=== PATIENT | female | born 1975 | race Hispanic/Latino ===

== ENCOUNTER 2019-02-05 04:24 | Observation (INO) | payer BC ==
[~2019-02-05] VITALS: Ht 160 cm; Wt 108.0 kg
--- OUTSIDE RECORDS SUMMARY | 2019-02-05 04:27 | XMS REPORT | Clinical Summary ---
Author Author [facility]BDON [facility] Address Unknown Phone Unavailable Care Team Providers Care Client Leader Name Role Phone Franklin Guzman MD PCP Allergies No Known Allergies Medications End Date Status Medication Sig Dispensed Refills Start Date Active levothyroxine (SYNTHROID, Take 88 mcg 0 LEVOTHROID) 88 MCG tablet by mouth Every morning on an empty stomach. Active metFORMIN (GLUCOPHAGE) Take 500 mg 0 500 MG tablet by mouth daily. Active atenolol (TENORMIN) 25 MG Take 25 mg by 0 tablet mouth daily. 07/01/2018 ciprofloxacin HCl (CIPRO) Take 1 tablet 14 tablet 0 500 MG tablet (500 mg 8 total) by mouth 2 (two) times daily for 7 days. 07/01/2018 metroNIDAZOLE (FLAGYL) Take 1 tablet 21 tablet 0 500 MG tablet (500 mg 8 total) by mouth 3 (three) times daily for 7 days. 07/01/2018 ondansetron (ZOFRAN) 4 MG Take 1 tablet 20 tablet 0 tablet (4 mg total) 8 by mouth every 4 (four) hours as needed for up to 7 days. Active Problems Not on file Encounters Care Team Description Date Type Specialty Eran Epps MD Colitis (Primary Dx); Generalized abdominal pain; Leukocytosis, unspecified type; Non-intractable vomiting with nausea, unspecified vomiting type 06/24/2018 Emergency Emergency Medicine 06/24/2018 Orders Only General Internal Medicine after 02/04/2018 Social History Date Tobacco Use Types Packs/Day Years Used Never Smoker Smokeless Tobacco: Never Used Sex Assigned at Date Recorded Not on file Industry Job Start Date Occupation Not on file Not on file Not on file Travel End Travel History Travel Start No recent travel history available. Last Filed Vital Signs Time Taken Vital Sign Reading 06/24/2018 12:40 PM CDT Blood Pressure 143/71 06/24/2018 12:40 PM CDT Pulse 53 06/24/2018 12:40 PM CDT Temperature 35.9 C (96.6 F) 06/24/2018 12:40 PM CDT Respiratory Rate 18 06/24/2018 12:40 PM CDT Oxygen Saturation 97% - Inhaled Oxygen - Concentration 06/24/2018 12:40 PM CDT Weight 140.6 kg (310 lb) 06/24/2018 12:40 PM CDT Height 160 cm (5' 3") 06/24/2018 12:40 PM CDT Body Mass Index 54.91 Plan of Treatment Not on file Procedures Comments Procedure Name Priority Date/Time Associated Diagnosis REPORT OF PROCEDURE - 06/25/2018 ENDOSCOPY SCAN 3:23 PM CDT ED ECG INTERPRETATION Routine 06/24/2018 9:[address] ABDOMEN/PELVIS WITH IV STAT 06/24/2018 CONTRAST 4:42 PM CDT CBC W/PLT COUNT & AUTO STAT 06/24/2018 DIFFERENTIAL 2:50 PM CDT LIPASE STAT 06/24/2018 2:50 PM CDT COMPREHENSIVE METABOLIC STAT 06/24/2018 PANEL 2:50 PM CDT CBC W/PLT COUNT & AUTO STAT 06/24/2018 DIFFERENTIAL 2:50 PM CDT after 02/04/2018 Results * EKG-SCANNED (06/25/2018 3:23 PM CDT) Narrative Performed At * ED ECG Interpretation (06/24/2018 9:52 PM CDT) Narrative Performed At Eran Epps MD 06/24/20189:52 PM ECG/EKG Interpretation Date/Time: 06/24/2018 4:20 PM Performed by: ERAN EPPS Authorized by: ERAN EPPS The ECG was interpreted by ED physician. This ECG was not compared with previous ECG(s).The ECG is interpreted as sinus rhythm. Rate is normal rate. Heart rate is 69 BPM. Clinical Impression: non-specific ECGComments: Nsr, nml axis, nml qrs, nml intervals * CT abdomen/pelvis with IV contrast (06/24/2018 4:42 PM CDT) Narrative Performed At FINAL REPORT [facility] CT of the abdomen and pelvis, with contrast Clinical History:diffuse abd pain diffuse abd pain Technique: CT of the abdomen and pelvis is performed with intravenous contrast administration.This exam was performed according to our departmental dose optimization program which includes automated exposure control, adjustment of the mA and/or kV according to patient's size and/or use of iterative reconstructive technique. Comparison Film:None Discussion: Visualized lower thorax is unremarkable. Liver is fatty. Status post cholecystectomy. No biliary ductal dilatation. The spleen, pancreas, and left adrenal gland are unremarkable. A 2.6 cm right adrenal nodule is not fully characterized on this exam. Kidneys contain several subcentimeter hypodensities bilaterally, too small to definitively characterize, but statistically they are likely to represent cysts. There is no hydronephrosis. Note excreted contrast in the renal collecting system may obscure the presence of small stones. No evidence of bowel obstruction. There is colonic diverticulosis, without focal inflammatory change to suggest acute diverticulitis. Mild colonic wall thickening versus underdistention, but there is no pericolonic inflammatory change. Appendix is normal. In the pelvis, bladder is unremarkable. Uterus is absent. No adnexal mass. There is no free air, or ascites. Osseous structures demonstrate mild degenerative changes. Impression: Question mild colonic wall thickening, versus underdistention, correlate clinically for colitis. Colonic diverticulosis, without evidence of acute diverticulitis. Fatty liver. Status post cholecystectomy, and hysterectomy. Bilateral small renal hypodensities, probably representing cysts, though not definitively characterized. Signed: Marysol Ordoñez MD Report Verified Date/Time:06/24/2018 17:12:19 Reading Location: [facility] Radiology Reading Room Procedure Note Interface, External Ris In - 06/24/2018 5:14 PM CDT FINAL REPORT CT of the abdomen and pelvis, with contrast Clinical History: diffuse abd pain diffuse abd pain Technique: CT of the abdomen and pelvis is performed with intravenous contrast administration. This exam was performed according to our departmental dose optimization program which includes automated exposure control, adjustment of the mA and/or kV according to patient's size and/or use of iterative reconstructive technique. Comparison Film: None Discussion: Visualized lower thorax is unremarkable. Liver is fatty. Status post cholecystectomy. No biliary ductal dilatation. The spleen, pancreas, and left adrenal gland are unremarkable. A 2.6 cm right adrenal nodule is not fully characterized on this exam. Kidneys contain several subcentimeter hypodensities bilaterally, too small to definitively characterize, but statistically they are likely to represent cysts. There is no hydronephrosis. Note excreted contrast in the renal collecting system may obscure the presence of small stones. No evidence of bowel obstruction. There is colonic diverticulosis, without focal inflammatory change to suggest acute diverticulitis. Mild colonic wall thickening versus underdistention, but there is no pericolonic inflammatory change. Appendix is normal. In the pelvis, bladder is unremarkable. Uterus is absent. No adnexal mass. There is no free air, or ascites. Osseous structures demonstrate mild degenerative changes. Impression: Question mild colonic wall thickening, versus underdistention, correlate clinically for colitis. Colonic diverticulosis, without evidence of acute diverticulitis. Fatty liver. Status post cholecystectomy, and hysterectomy. Bilateral small renal hypodensities, probably representing cysts, though not definitively characterized. Signed: Marysol Ordoñez MD Report Verified Date/Time: 06/24/2018 17:12:19 Reading Location: [facility] Radiology Reading Room Performing Organization Address City/State/Zipcode Phone Number [facility]IS * CBC with platelet count + automated diff (06/24/2018 2:50 PM CDT) WBC 13.6 (H) 4.0 - 10.0 K/L [facility] RBC 5.06 (H) 4.00 - 5.00 M/L [facility] Hemoglobin 14.4 12.0 - 15.5 GM/DL [facility] Hematocrit 42.6 36.0 - 46.0 % [facility] MCV 84.2 82.0 - 99.0 fL [facility] MCH 28.5 27.0 - 33.0 pg [facility] MCHC 33.8 32.0 - 36.0 GM/DL [facility] RDW 14.6 12.0 - 15.0 % [facility] Platelets 289 150 - 430 K/CU MM [facility] MPV 10.7 6.0 - 11.5 fL [facility] nRBC 0 0 - 0 /100 WBC [facility] % Neutros 81 % [facility] % Lymphs 12 % [facility] % Monos 4 % [facility] % Eos 2 % [facility] % Baso 0 % [facility] # Neutros 11.03 (H) 1.80 - 8.00 K/L [facility] # Lymphs 1.67 1.48 - 4.50 K/L [facility] # Monos 0.55 0.00 - 1.30 K/L [facility] # Eos 0.28 0.00 - 0.50 K/L [facility] # Baso 0.03 0.00 - 0.20 K/L [facility] Immature 0 0 - 0 % [facility] Granulocytes-Relative [facility] Specimen Blood Performing Organization Address City/State/Zipcode Phone Number [facility] [address] [place] [address] [phone] * Lipase (06/24/2018 2:50 PM CDT) Lipase 21 6 - 51 U/L [facility] Specimen Blood Performing Organization Address City/State/Zipcode Phone Number [facility] [address] [place] [address] [phone] * Comprehensive metabolic panel (06/24/2018 2:50 PM CDT) Protein, Total 8.0 6.0 - 8.5 gm/dL [facility] Albumin 4.3 3.5 - 5.0 g/dL [facility] Alkaline Phosphatase 77 30 - 115 U/L [facility] Total Bilirubin 0.8 0.1 - 1.2 mg/dL [facility] Sodium 140 135 - 148 meq/L [facility] Potassium 3.8 3.6 - 5.5 meq/L [facility] Chloride 104 98 - 106 meq/L [facility] CO2 26 20 - 29 meq/L [facility] BUN 11 10 - 26 mg/dL [facility] Creatinine 0.72 0.50 - 1.20 mg/dL [facility] Glucose 96 70 - 110 mg/dL [facility] Calcium 9.5 8.5 - 10.5 mg/dL [facility] AST 18 5 - 40 U/L [facility] ALT 28 5 - 50 U/L [facility] EGFR 89Comment: ESTIMATED GFR IS mL/min/1.73 sq m [facility] NOT ACCURATE CREATININE LABORATORY CLEARANCE IN PREDICTING GLOMERULAR FILTRATION RATE. ESTIMATED GFR IS NOT APPLICABLE FOR DIALYSIS PATIENTS. Specimen Blood Performing Organization Address City/State/Zipcode Phone Number [facility] [address] [place] [address] after 02/04/2018 Insurance Payer Benefit Subscriber ID Type Phone Address Plan / Group [facility] xxxxxxxx [facility] [employer]
--- OUTSIDE RECORDS SUMMARY | 2019-02-05 04:27 | XMS REPORT ---
Author Author [facility] Address Unknown Phone Unavailable Care Team Providers Care Hand Violin Maker Name Role Phone CRISTY EPPS Unavailable Unavailable Problems This patient has no known problems. Allergies, Adverse Reactions, Alerts This patient has no known allergies or adverse reactions. Medications This patient has no known medications. Results Test Description Test Time Test Comments Text Results Atomic Results Result Comments CT, ABDOMEN 2018-06-24 17:12:00 Reason for exam:->diffuse abd pain FINAL REPORT CT of the abdomen and pelvis, with contrast Clinical History: diffuse abd paindiffuse abd pain Technique: CT of the abdomen and pelvis is performed with intravenous contrast administration. This exam was performed according to our departmental dose optimization program which includes automated exposure control, adjustment of the mA and/or kV according to patient' s size and/or use of iterative reconstructive technique. [...] no free air, or ascites. Osseous structures d emonstrate mild degenerative changes. Impression: Question mild colonic wall thickening, versus underdistention, correlate clinically for colitis. Colonic diverticulosis, without evidence of acute diverticulitis. Fatty liver. Status post cholecystectomy, and hysterectomy. Bilateral small renal hypodensities, probably representing cysts, though not definitively characterized. Signed: Marysol Ordoñez MDReport Verified Date/Time: 06/24/2018 17:12:19 Reading Location: [facility] Radiology Reading Room REHENSIVE METABOLIC PANEL 2018-06-24 15:44:00 TOTAL PROTEIN (BEAKER) (test hqau=984) 8.0 gm/dL 6.0-8.5 ALBUMIN (BEAKER) (test nzah=0760) 4.3 g/dL 3.5-5.0 ALKALINE PHOSPHATASE (BEAKER) (test maod=076) 77 U/L 30-115 BILIRUBIN TOTAL (BEAKER) (test wsfv=326) 0.8 mg/dL 0.1-1.2 SODIUM (BEAKER) (test kjup=373) 140 meq/L 135-148 POTASSIUM (BEAKER) (test koaa=109) 3.8 meq/L 3.6-5.5 CHLORIDE (BEAKER) (test cama=977) 104 meq/L 98-106 CO2 (BEAKER) (test orcq=607) 26 meq/L 20-29 BLOOD UREA NITROGEN (BEAKER) (test uqqz=302) 11 mg/dL 10-26 CREATININE (BEAKER) (test mcyu=162) 0.72 mg/dL 0.50-1.20 GLUCOSE RANDOM (BEAKER) (test ddyo=789) 96 mg/dL 70-110 CALCIUM (BEAKER) (test bxuk=260) 9.5 mg/dL 8.5-10.5 AST (SGOT) (BEAKER) (test usil=376) 18 U/L 5-40 ALT (SGPT) (BEAKER) (test kjsa=509) 28 U/L 5-50 EGFR (BEAKER) (test hzzb=9957) 89 mL/min/1.73 sq m ESTIMATED GFR IS NOT ACCURATE CREATININE CLEARANCE IN PREDICTING GLOMERULAR FILTRATION RATE. ESTIMATED GFR IS NOT APPLICABLE FOR DIALYSIS PATIENTS. [id number] 15:44:00* Test Item Value Reference Range Comments LIPASE (BEAKER) (test jznf=158) 21 U/L 6-51 CBC W/PLT COUNT & AUTO [id number] 15:22:00* Test Item Value Reference Range Comments WHITE BLOOD CELL COUNT (BEAKER) (test nevb=964) 13.6 K/ L 4.0-10.0 RED BLOOD CELL COUNT (BEAKER) (test jpqx=079) 5.06 M/ L 4.00-5.00 HEMOGLOBIN (BEAKER) (test hpou=762) 14.4 GM/DL 12.0-15.5 HEMATOCRIT (BEAKER) (test lkqt=939) 42.6 % 36.0-46.0 MEAN CORPUSCULAR VOLUME (BEAKER) (test fodw=306) 84.2 fL 82.0-99.0 MEAN CORPUSCULAR HEMOGLOBIN (BEAKER) (test jsst=252) 28.5 pg 27.0-33.0 MEAN CORPUSCULAR HEMOGLOBIN CONC (BEAKER) (test vdmk=206) 33.8 GM/DL 32.0-36.0 RED CELL DISTRIBUTION WIDTH (BEAKER) (test rlrq=073) 14.6 % 12.0-15.0 PLATELET COUNT (BEAKER) (test jhkx=657) 289 K/CU MM 150-430 MEAN PLATELET VOLUME (BEAKER) (test info=265) 10.7 fL 6.0-11.5 NUCLEATED RED BLOOD CELLS (BEAKER) (test djbr=173) 0 /100 WBC 0-0 NEUTROPHILS RELATIVE PERCENT (BEAKER) (test pcks=181) 81 % LYMPHOCYTES RELATIVE PERCENT (BEAKER) (test erws=068) 12 % MONOCYTES RELATIVE PERCENT (BEAKER) (test kzcl=213) 4 % EOSINOPHILS RELATIVE PERCENT (BEAKER) (test afyn=042) 2 % BASOPHILS RELATIVE PERCENT (BEAKER) (test xgps=319) 0 % NEUTROPHILS ABSOLUTE COUNT (BEAKER) (test kprk=049) 11.03 K/ L 1.80-8.00 LYMPHOCYTES ABSOLUTE COUNT (BEAKER) (test jkff=538) 1.67 K/ L 1.48-4.50 MONOCYTES ABSOLUTE COUNT (BEAKER) (test okei=224) 0.55 K/ L 0.00-1.30 EOSINOPHILS ABSOLUTE COUNT (BEAKER) (test qivj=558) 0.28 K/ L 0.00-0.50 BASOPHILS ABSOLUTE COUNT (BEAKER) (test zbfs=801) 0.03 K/ L 0.00-0.20 IMMATURE GRANULOCYTES-RELATIVE PERCENT (BEAKER) (test fsjb=9252) 0 % 0-0
[2019-02-05] MEDS ORDERED: ASPIRIN 81 MG CHEW TAB PO ONE (04:45)
[2019-02-05 05:03] LABS: BASOPHILS % 0.4 % (0.0-1.0); EOSINOPHILS # (AUTO) 0.3 (0.0-0.4); EOSINOPHILS % 4.1 % (0.0-6.0); HEMOGLOBIN 14.7 g/dL (12.0-16.0); LYMPHOCYTES # (AUTO) 2.2 (1.0-3.2); LYMPHOCYTES % 30.3 % (18.0-39.1); MEAN CORPUSCULAR HEMOGLOBIN 29.1 pg (28-32); MEAN CORPUSCULAR VOLUME 83.2 fL (81-99); MONOCYTES # (AUTO) 0.5 (0.2-0.8); MONOCYTES % 6.6 % (4.4-11.3); NEUTROPHILS # (AUTO) 4.2 (2.1-6.9); NEUTROPHILS % 58.2 % (38.7-80.0); PLATELET COUNT 210 x10e3/uL (140-360); RED BLOOD COUNT 5.05 x10e6/uL (3.6-5.1); RED CELL DISTRIBUTION WIDTH 14.6 % (11.7-14.4)
--- NOTE | 2019-02-05 05:15 | Diagnostic Imaging Report ---
Examination: Single AP view of the chest. COMPARISON: None. INDICATION: Chest pain DISCUSSION: Lines/tubes: None. Lungs: The lungs are well inflated and clear. No pneumonia or pulmonary edema. Pleura: No pleural effusion or pneumothorax. Heart and mediastinum: The heart and the mediastinum are unremarkable. Bones and soft tissues: No acute bony abnormalities. IMPRESSION: 1. No acute cardiopulmonary abnormalities. Signed by: Dr. Brian Hooker M.D. on 02/05/2019 5:12 AM
[2019-02-05 05:24] LABS: ALANINE AMINOTRANSFERASE 62 IU/L (0-55); ALBUMIN 3.9 g/dL (3.5-5.0); ALBUMIN/GLOBULIN RATIO 1.1 (0.8-2.0); ALKALINE PHOSPHATASE 67 IU/L (40-150); ANION GAP 13.9 mmol/L (8-16); BLOOD UREA NITROGEN 13 mg/dL (7-26); BUN/CREATININE RATIO 21 (6-25); CALCIUM 9.5 mg/dL (8.4-10.2); CARBON DIOXIDE 25 mmol/L (22-29); CHLORIDE 106 mmol/L (98-107); CREATINE KINASE 86 IU/L (29-168); CREATININE, SERUM 0.63 mg/dL (0.57-1.11); EST GLOMERULAR FILTRATION RATE > 60 ML/MIN (60-); GLUCOSE 91 mg/dL (74-118); POTASSIUM 3.9 mmol/L (3.5-5.1); SODIUM 141 mmol/L (136-145)
[2019-02-05 05:31] LABS: CLARITY,URINE HAZY (CLEAR); COLOR,URINE YELLOW (YELLOW)
[2019-02-05 05:32] LABS: BILIRUBIN,URINE 2+ (NEGATIVE); KETONES,URINE 1+ (NEGATIVE); LEUKOCYTE ESTERASE ,URINE TRACE (NEGATIVE); NITRITE,URINE NEGATIVE (NEGATIVE); PROTEIN,URINE DIPSTICK TRACE (NEGATIVE); URINE UROBILINOGEN 1 mg/dL (0.2 - 1)
[2019-02-05 05:35] LABS: BACTERIA,URINE MANY /HPF; EPITHELIAL CELLS,URINE MANY /LPF; WBC,URINE (MAN) 0-5 /HPF (0-5)
[2019-02-05 05:36] LABS: MUCUS,URINE FEW (RARE)
[2019-02-05] MEDS ORDERED: ONDANSETRON HCL INJ 2MG/ML 2ML 2 MG/ML VIAL IV PRN (06:00)
[2019-02-05] MEDS ORDERED: DEXTROSE 50% SYRINGE 50 ML IV PRN (06:00)
[2019-02-05] MEDS ORDERED: NITROGLYCERIN 0.4 MG SUBL SL PRN (06:00)
--- OUTSIDE RECORDS SUMMARY | 2019-02-05 06:03 | XMS REPORT ---
Author Author [facility] Address Unknown Phone Unavailable Care Team Providers Care Hammer Adjuster Name Role Phone Genet MEADE Unavailable Unavailable Payers Payer Name Policy Type Policy Number Effective Date Expiration Date Problems This patient has no known problems. Allergies, Adverse Reactions, Alerts Allergy Name Allergy Type Status Severity Reaction(s) Onset Date Inactive Date Treating Clinician Comments nitrofurantoin DA Active U 2018-09-10 00:00:00 morphine DA Active SV 2015-05-17 00:00:00 egg yolk DA Active SV 2015-05-17 00:00:00 watermelon DA Active SV 2015-05-17 00:00:00 milk DA Active SV 2015-05-17 00:00:00 tea tree DA Active SV 2015-05-17 00:00:00 CUMIN DA Active SV 2015-05-17 00:00:00 Medications This patient has no known medications. Results Test Description Test Time Test Comments Text Results Atomic Results Result Comments CHEST SINGLE (PORTABLE) 2019-02-05 05:10:00 [place] [address] Patient Name: ELLA REZA MR #: [id number] : 1975 Age/Sex: 43/F Req #: [id number] Adm Physician: Ordered by: JESSICA MEADE MD Report #: [id number] Location: ER Room/Bed: Procedure: [id number] DX/CHEST SINGLE (PORTABLE) Exam Date: 02/05/19 Exam Time: 0455 REPORT STATUS: Signed Examination: Single AP view of the chest. COMPARISON: None. INDICATION: Chest pain DISCUSSION: Lines/tubes: None. Lungs: The lungs are well inflated and clear. No pneumonia or pulmonary edema. Pleura: No pleural effusion or pneumothorax. Heart and mediastinum: The heart and the mediastinum are unremarkable. Bones and soft tissues: No acute bony abnormalities. IMPRESSION: 1. No acute cardiopulmonary abnormalities. Signed by: Dr. Americo Sanchez M.D. on 02/05/2019 5:12 AM Dictated By: AMERICO SANCHEZ MD 1 Transcribed By: INA on 02/05/19511 COPY TO: JESSICA MEADE MD
[2019-02-05] MEDS: FAMOTIDINE 20 MG/2 ML VIAL IV SCH ×2 (06:53→17:38)
[2019-02-05] MEDS: INSULIN REGULAR, HUMAN 100 UNIT/1 ML 3ML VIAL SQ SCH ×4 (07:30→20:10)
[2019-02-05 07:45] VITALS: BP 159/91
[2019-02-05 07:58] VITALS: BP 159/91
[2019-02-05] MEDS: ASPIRIN 81 MG ENTERIC COATED PO SCH (09:09)
--- NOTE | 2019-02-05 10:04 | NUR ---
SOCIAL WORK INITIAL ASSESSMENT Firer Glost Kiln to bedside to discuss plan of care with patient/family. CM/SW role and care transitions discussed. Anticipated discharge plan discussed along with duration of care. CM/SW discussed patients right to make decisions in care. CM/SW work hours given. Patient lives: WITH [phone] Admit/Transfer: VIA ED POA/Emergency contact: [phone] Current/Previous Home Health: NONE PCP/Follow-up Care: J CARLOS Current/Previous DME: Other Services: NONE Employment Status: PRODUCT/INDUSTRY CONSULTANT Areas of Concerns: NONE Referral Needs: NONE Education Needs: NONE IMM/ARBOLEDA given and signed (if applicable): Goal for discharge: RETURN HOME INDEPENDENT CM/SW left business card at the bedside with contact information. Name and number was also written on the patients whiteboard. Patient verbalized understanding of discussion. CM will follow-up with ongoing discharge and transition of care needs.
[2019-02-05 10:21] LABS: CHOL/HDL RATIO 2.8 (3.0-3.6)
--- NOTE | 2019-02-05 11:00 | NUR ---
patient received from ER with family at . see admit assess. chest pain has subsided at this time. sinus kai into the thirtys at times. informed Dr De Oliveira and Dr Agee and Dr Johnson consulted. vitals stable with no distress at this time.
[2019-02-05] MEDS ORDERED: CEFTRIAXONE SOD 1 GM/NS 50 ML 50 ML IV SCH (11:15)
--- NOTE | 2019-02-05 12:06 | NUR ---
Nutrition Screen Note RD Recommendation for Physician: Continue diet as ordered Plan of Care: RD following, monitoring for adequacy and tolerance Nutrition reason for involvement: Nutrition Risk Trigger - MST Primary Diagnose(s): chest Pain Ht:63 in Wt:238lbs BMI:42.2 kg/m2 IBW:115lbs RD Assessment:(02/05/2019) Initial encounter with patient. No H&P dicated at this time. Pt with a Hx of Gastric Sleeve(10/14/2018), HTN, T2DM, overweight/obesity. Pt states that she is still adjusting to how to eat with the gastric sleeve and get enough protein. She has been compliant with follow up appointments. Decreased PO intake due to the gastric sleeve. Pt denies Nausea, vomiting and has normal BM. Takes gummy vitamins. Brought by some Ensure Max in chocolate flavor for pt to try. encourage to eat smaller meals throughout the day Current Diet: 1800 ADA Malnutrition Evaluation (02/05/2019l) The patient does not meet criteria for a specified degree of malnutrition at this time. Will re-evaluate at follow-up as appropriate. Diet Education Needs Assessment: Diet education not indicated. Diet Adequacy Not meeting calorie needs, Not meeting protein needs. Tolerance: Tolerating PO, Nutrition Care Level:librado Gutierrez RD, LD, CNSC
[2019-02-05 12:32] VITALS: BP 113/56
[2019-02-05 14:45] LABS: CREATINE KINASE MB 0.3 ng/mL (0-5.0)
[2019-02-05 16:29] VITALS: BP 124/65
[2019-02-05] MEDS ORDERED: ENOXAPARIN SOD INJ 40 MG/0.4 ML SYR SC SCH (17:00)
--- NOTE | 2019-02-05 19:00 | NUR ---
Received patient from day nurse, patient is stable.
[2019-02-05 20:00] VITALS: BP 136/85
[2019-02-06] VITALS: BP 115/59
[2019-02-06 04:00] VITALS: BP 119/59
[2019-02-06 06:27] LABS: BASOPHILS % 0.3 % (0.0-1.0); EOSINOPHILS # (AUTO) 0.3 (0.0-0.4); EOSINOPHILS % 5.3 % (0.0-6.0); HEMATOCRIT 39.2 % (34.2-44.1); HEMOGLOBIN 13.4 g/dL (12.0-16.0); LYMPHOCYTES % 32.3 % (18.0-39.1); MEAN CORPUSCULAR HEMOGLOBIN 28.8 pg (28-32); MEAN CORPUSCULAR HGB CONC 34.2 g/dL (31-35); MEAN CORPUSCULAR VOLUME 84.3 fL (81-99); MONOCYTES # (AUTO) 0.5 (0.2-0.8); MONOCYTES % 7.3 % (4.4-11.3); NEUTROPHILS # (AUTO) 3.4 (2.1-6.9); NEUTROPHILS % 54.5 % (38.7-80.0); PLATELET COUNT 175 x10e3/uL (140-360); RED BLOOD COUNT 4.65 x10e6/uL (3.6-5.1); RED CELL DISTRIBUTION WIDTH 14.5 % (11.7-14.4)
[2019-02-06] MEDS: FAMOTIDINE 20 MG/2 ML VIAL IV SCH (06:40)
--- NOTE | 2019-02-06 07:12 | NUR ---
patient endorsed to next shift for continuity of care.
[2019-02-06] MEDS: INSULIN REGULAR, HUMAN 100 UNIT/1 ML 3ML VIAL SQ SCH ×2 (07:30→11:30)
[2019-02-06 08:00] VITALS: BP 121/67
[2019-02-06 08:10] LABS: ALANINE AMINOTRANSFERASE 59 IU/L (0-55); ALBUMIN 3.5 g/dL (3.5-5.0); ALBUMIN/GLOBULIN RATIO 1.1 (0.8-2.0); ALKALINE PHOSPHATASE 57 IU/L (40-150); ANION GAP 11.9 mmol/L (8-16); BLOOD UREA NITROGEN 12 mg/dL (7-26); BUN/CREATININE RATIO 19 (6-25); CALCIUM 8.9 mg/dL (8.4-10.2); CARBON DIOXIDE 26 mmol/L (22-29); CHLORIDE 108 mmol/L (98-107); CREATININE, SERUM 0.64 mg/dL (0.57-1.11); EST GLOMERULAR FILTRATION RATE > 60 ML/MIN (60-); GLUCOSE 80 mg/dL (74-118); POTASSIUM 3.9 mmol/L (3.5-5.1); SODIUM 142 mmol/L (136-145)
[2019-02-06 08:25] VITALS: BP 121/67
[2019-02-06] MEDS: ASPIRIN 81 MG ENTERIC COATED PO SCH (08:25)
--- NOTE | 2019-02-06 09:10 | NUR ---
spoke with Dr De Oliveira concerning patient losing IV access. Medications switched to PO and urine will be sent for C&S.
[2019-02-06 09:30] LABS: CHOL/HDL RATIO 3.1 (3.0-3.6); CHOLESTEROL 130 MD/DL (0-199); HDL CHOLESTEROL 42 MG/DL (40-60); LDL CHOLESTEROL 66 MG/DL (60-130); TRIGLYCERIDES 109 MG/DL (0-149)
[2019-02-06] MEDS ORDERED: FAMOTIDINE 20 MG TAB PO SCH ×2 (09:30→18:00)
[2019-02-06] MEDS ORDERED: CEPHALEXIN 500 MG CAP PO SCH (09:30)
[2019-02-06 12:21] VITALS: BP 120/65
--- NOTE | 2019-02-06 12:43 | NUR ---
Per Dr. Agee if CT of the chest is negative, patient may be discharged from cardiology stand point.
[2019-02-06] MEDS ORDERED: DIPHENHYDRAMINE HCL INJ 50 MG/ML VIAL IV NR (14:00)
--- NOTE | 2019-02-06 14:20 | NUR ---
patient leaving the floor for CT scan via wheelchair, alert and oriented.
--- NOTE | 2019-02-06 14:48 | NUR ---
patient arrived back on unit via wheelchair, alert and oriented. bed in lowest position and call hinkle within reach
[2019-02-06] MEDS ORDERED: IOPAMIDOL 370 MG/ML 200 ML INFUS..BTL INJ ONE (14:56)
[2019-02-06] MEDS ORDERED: SODIUM CHLORIDE 0.9% 50ML 50 ML ONE (14:56)
--- NOTE | 2019-02-06 15:12 | Diagnostic Imaging Report ---
CT CHEST WITH CONTRAST HISTORY: Chest pain, rule out PE COMPARISON: None available. TECHNIQUE: CT scan of the chest WITH intravenous contrast, using PE protocol. The chest was scanned utilizing a multidetector helical scanner from the lung apex through the level of the adrenal glands. Thin section reconstructions were obtained with special concentration on the pulmonary arteries. IV CONTRAST: 100 cc of Isovue-370. PROTOCOL: PE RADIATION DOSE: Total DLP: 600.46 mGy*cm Dose modulation, iterative reconstruction, and/or weight based adjustment of the mA/kV was utilized to reduce the radiation dose to as low as reasonably achievable. COMPLICATIONS: None DISCUSSION: Lungs: Minimal left dependent atelectasis. Vessels: No filling defects are identified within the pulmonary arteries to the segmental levels. Airways: Mild thickening of the bronchial jimenez. Pleura: No pleural effusion or pneumothorax. Heart and mediastinum: Trace pericardial fluid. Abdomen: Limited evaluation of the upper abdomen. A 1.5 cm low density right adrenal nodule. Diffusely decreased attenuation of the liver. Metallic clips in the right upper quadrant of the abdomen are compatible with prior cholecystectomy. Postsurgical changes of the stomach. Lymph nodes: No pathologically enlarged lymph node. Bones: No acute bone abnormality. Soft tissues: Unremarkable IMPRESSION: 1. No evidence of pulmonary embolus. 2. Findings which could be seen in setting of a nonspecific bronchitis. 3. Hepatic steatosis. 4. An incidental 1.5 cm lipid rich right adrenal adenoma. Signed by: Dr. Audie Carroll D.O., M.M.M. on 02/06/2019 3:08 PM
--- NOTE | 2019-02-06 15:42 | NUR ---
History and Physical LATE entry: DOS: 02/05/19 PCP cc: leg heaviness/chest palpitation HPI: 43yoF, developed B/L leg heaviness, then chest palpitation, with left chest pain radiation to left arm/fingers. All symptoms resolved; Pt admits to being anxious. Last stress test 1 year ago negative per pt. PMH: DM, TIA, skin cancer right ear s/p removal, anxiety d/o, Morbid obesity s/p gastric sleeve 10/2018 PSHx: gastric sleeve 10/2018, csection x4, cholecystectomy, tonsillectomy, carpal tunnel, hysterectomy Allergies; see emr FH/SH; ; no cigs/illicits mEds; see MAR ROS; no f/c/s/N/V/D/NEIL/vision changes/skin rash/back pain v/s; revd PE tired appearing anciteric ns1s2 mod bs soft nt nd Left sided chest tenderness no skin rash a&ox3; martínez flat affect labs/meds; rev'd A/P: 43yoF Musculoskeletal chest discomfort Severe obesity BMI 42 Transaminitis UTI DM Hx TIA Anxiety d/o Prop; lovenox; pepcid dispo: Tian De Oliveira MD, PhD.
--- NOTE | 2019-02-06 15:44 | NUR ---
Discharge Summary A/P: 43yoF Musculoskeletal chest discomfort Severe obesity BMI 42 Transaminitis UTI DM Hx TIA Anxiety d/o Prop; lovenox; pepcid dispo: Hba1c/LDL/TG 4.9/66/109; all cardiac enzymes negative; 1.5cm right adrenal adenoma; CT no PE. Home with statin/ASA/keflex d/c home f/u pcp 1 week d/c >35mins stable Tian De Oliveira MD, PhD.
[2019-02-06] MEDS ORDERED: ASPIRIN EC81 MG PO (15:48)
[2019-02-06] MEDS ORDERED: FAMOTIDINE20 MG PO (15:48)
[2019-02-06] MEDS ORDERED: KEFLEX500 MG PO (15:48)
[2019-02-06] MEDS ORDERED: PRAVASTATIN SOD10 MG PEG (15:50)
--- NOTE | 2019-02-06 16:00 | NUR ---
patient alert and oriented. discharge instructions given to patient, and she verbalized understanding. IV discontinued at this time, catheter in tact and small dressing applied. patient refused wheelchair assistance and will be escorted from floor via wheelchair to personal auto for patient's family to drive home.
--- NOTE | 2019-02-06 20:30 | Consultation ---
DATE OF CONSULTATION: REASON FOR CONSULT: Chest pain, bradycardia. HISTORY OF PRESENTING ILLNESS: Ms. Fagan is a 43-year-old lady with past medical history as listed below, reportedly developed some left leg tightness about 1:00 a.m. yesterday morning. She also developed chest pain and so was decided to come to the hospital. The patient states her chest pain was intermittent, lasting for a minute or two, no radiation. No shortness of breath or diaphoresis. The patient states she feels better. She had no leg swelling. No recent travel. She was also noted to be bradycardic, very transiently dropped into the 30s and then went back into the 50s. The patient states she feels fine now and wants to go home. REVIEW OF SYMPTOMS: CONSTITUTIONAL: Has some fatigue and weakness. HEENT: No headache, blurring of vision, seizure, or syncope. CARDIOVASCULAR: Had chest pain. No unusual dyspnea, orthopnea, or PND. RESPIRATORY: Had some cough. No fever or expectoration. GI: No abdominal pain, vomiting, or diarrhea. : No dysuria, frequency, or incontinence. ALLERGIES: NO KNOWN DRUG ALLERGIES. MEDICATIONS: See list. PAST MEDICAL HISTORY: The patient reportedly had hypertension, blood pressure got better after she had gastric sleeve in October; history of diabetes mellitus. SOCIAL HISTORY: Does not smoke or drink. PAST SURGICAL HISTORY: Gastric sleeve in October 2017. FAMILY HISTORY: There is a family history of hypertension and diabetes. PHYSICAL EXAMINATION: GENERAL: Obese lady, alert, oriented, not in any obvious distress. VITAL SIGNS: Heart rate is 52, blood pressure 121/67, respiratory rate is 18. HEENT: Atraumatic. NECK: No JVD, bruit, thyromegaly, or lymphadenopathy. CARDIOVASCULAR: First and second heart sounds heard. No murmurs, rubs, or gallops appreciated. CHEST: Clear to auscultation. ABDOMEN: Obese, nontender. EXTREMITIES: No edema. LABORATORY DATA: Sodium is 142, potassium 3.9, chloride 108, bicarb is 26, BUN is 12, creatinine 0.6. Hemoglobin 13.4, hematocrit 39.2, platelets 135, white count is 6.2. Troponins are normal. Echo shows normal LV function, ejection fraction 55% to 60%. EKG shows sinus bradycardia, 59 beats per minute, normal axis, normal intervals, poor R-wave progression V1 to V4, nonspecific ST-T changes. IMPRESSION: 1. Chest pain. 2. Bradycardia. 3. History of hypertension. 4. History of diabetes mellitus. 5. Obesity. PLAN: 1. Cardiac enzymes are normal. 2. Heart rate is better at 50s. 3. Echocardiogram shows normal LV function. 4. Get CT chest to rule out PE. 5. Continue with other medications. 6. If CT is negative, the patient can be discharged and follow up as an outpatient. 7. Avoid AV blocking agents. 8. Discussed my impression and plan of management with the patient and family and they understands. As always, I appreciate and thank you very much for the referral. MD AMBAR Kay/MAHSA /[id number]
== END 2019-02-06 16:03 | disposition home or self-care (01) ==
LOC: ER 04:24 → ERHOLD 06:00 → IMCU 07:22
PROVIDERS: ADMIT Internal Medicine; ATTEND Internal Medicine
DX: R07.89 Other chest pain (principal); E11.9 Type 2 diabetes mellitus without complications; Z98.84 Bariatric surgery status; Z83.3 Family history of diabetes mellitus; Z82.49 Family history of ischemic heart disease and other diseases of the circulatory system; Z88.8 Allergy status to other drugs, medicaments and biological substances; R00.1 Bradycardia, unspecified; I10 Essential (primary) hypertension; Z68.41 Body mass index [BMI] 40.0-44.9, adult; E66.01 Morbid (severe) obesity due to excess calories; N39.0 Urinary tract infection, site not specified; Z86.73 Personal history of transient ischemic attack (TIA), and cerebral infarction without residual deficits; F41.9 Anxiety disorder, unspecified; R74.0 Nonspecific elevation of levels of transaminase and lactic acid dehydrogenase [LDH]; D35.01 Benign neoplasm of right adrenal gland
CPT/HCPCS: 36415 ×2; 71045; 71260; 80053 ×2; 80061 ×2; 81001; 82550; 82553; 82948; 83036; 84484; 85025 ×2; 85379; 87086; 93005; 93306; 99284; G0378 ×2; J0696; J1200; J1650; Q9967